=== PATIENT | female | born 1995 | race Caucasian/White ===

== ENCOUNTER 2016-10-17 14:53 | Emergency (ER) | payer BC ==
[~2016-10-17] VITALS: Ht 172.7 cm; Wt 66.0 kg
[2016-10-17 14:58] VITALS: TEMP 36.8; Ht 172.7 cm; Wt 66.0 kg
--- NOTE | 2016-10-17 15:41 | EMERGENCY ROOM VISIT NOTE ---
ED Visit Note First contact with patient: 15:20 CHIEF COMPLAINT: Right eyelid laceration HISTORY OF PRESENT ILLNESS: This 21-year-old female patient presents to the emergency department ambulatory after cutting the right eyelid rate last night. The patient states that she was dancing at a bar and accidentally ran into a glass with her head. She states that she noticed a laceration above her right eye and they immediately went home and cleaned the cut with an alcohol wipe and applied Neosporin. There has been no active bleeding, but the patient states that when she lifts off the cut it seems to gape apart. Her tetanus shot is up- to-date. She denies headache, nausea, loss of consciousness or dizziness. REVIEW OF SYSTEMS: A 6 system review of systems was completed with positives and pertinent negatives listed in the HPI. ALLERGIES: No known drug allergies MEDICATIONS: ParaGard IUD PMH: No significant past medical history. SOCIAL HISTORY: The patient lives locally with roommates. Nonsmoker, admits to occasional alcohol use. PHYSICAL EXAM: Vital Signs: Reviewed Nurse's notes, vital signs stable. GENERAL : This is a 21-year-old female, in no acute distress, well-developed, well- nourished. SKIN: There is a 1 cm long laceration just superior to the lateral aspect of the right eye. It is superficial and the edges only mildly gape apart with traction, but lay well without traction. There is no foreign material in the wound and it looks clean. There is no active bleeding. HEENT: PERRLA, EOMs intact. Tympanic membranes pearly shannon bilaterally without hemotympanum. Mucous membranes moist. No facial bone tenderness. EMERGENCY DEPARTMENT COURSE: I examined the patient. Verbal consent was obtained to perform the procedure. The laceration was cleaned with betadine and sterile saline and there was no bleeding. The edges of the laceration were approximated and secured with 3 layers of Dermabond glue with good wound approximation. The patient tolerated the procedure well. Scar reduction measures were discussed with the patient. She verbalized understanding of my assessment and treatment plan. The patient was discharged home in stable condition. DIAGNOSIS: Right eyelid laceration Current/Historical Medications Scheduled Iud's (Paragard Intrauterine Inspector Conveyor Line), 1 EA INT UTER UD Allergies Coded Allergies: No Known Allergies (Unverified , 10/17/16) Vital Signs Date Time Temp Pulse Resp B/P (MAP) Pulse Ox O2 Delivery O2 Flow Rate FiO2 10/17/16 15:52 59 18 130/74 97 10/17/16 14:58 36.8 60 16 126/79 98 Room Air Departure Information Impression Primary Impression: Facial laceration Dispostion Home / Self-Care Condition GOOD Referrals No Doctor, Assigned (PCP) Patient Instructions ED Laceration Facial Skin Glue, My [facility] Additional Instructions Leave the skin glue in place. This will follow off on its own in 4-5 days. For pain control, you can use the following [id number] medicines (if >12 yo): - Regular strength (325mg/tab) Tylenol (acetaminophen) 2 tabs every 4-6 hours as needed. Do not exceed 12 tablets in a 24 hour period. Avoid taking more than 4 grams (4000 mg) of Tylenol per day. This includes any other sources of acetaminophen you may take on a regular basis. - Regular strength (200 mg/tab) Advil (ibuprofen) 1-2 tabs every 4-6 hours as needed. Do not exceed a dose of 3200 mg per day. Apply either Eucerin or Cerave cream to the dry areas on your face. After the glue has fallen off, you can apply vitamin E oil, cocoa butter or over -the-counter scar formulations to the scar. Keep SPF on to prevent burning. Problem Qualifiers Primary Impression: Facial laceration Encounter type: initial encounter Qualified Codes: S01.81XA - Laceration without foreign body of other part of head, initial encounter
[2016-10-17] MEDS ORDERED: IUD'IUD INT UTER (15:50)
[2016-10-17 15:52] VITALS: BP 130/74; PULSE 59; O2SAT 97
== END 2016-10-17 15:49 | disposition home or self-care (01) ==
LOC: C.EDB 14:57 → C.EDD 15:49
DX: S01.81XA Laceration without foreign body of other part of head, initial encounter (principal); W25.XXXA Contact with sharp glass, initial encounter

== ENCOUNTER 2016-12-04 12:30 | Emergency (ER) | payer BC ==
[~2016-12-04] VITALS: Ht 170.2 cm; Wt 64.9 kg
[~2016-12-04 12:30] MED LIST: IUD'IUD INT UTER
[2016-12-04 12:31] VITALS: TEMP 37.1; Ht 170.2 cm; Wt 64.9 kg
[2016-12-04] MEDS ORDERED: SODIUM CHLORIDE 0.9% 1000ML 1,000 ML IV STA (12:44)
[2016-12-04 13:18] LABS: BASO % 0.3 %; BASO ABS # 0.02 K/uL (0-0.2); COMPLETE YES; EOS % 0.7 %; HEMATOCRIT 39.3 % (37-47); IG% 0.2 %; LYMPH % 19.3 %; LYMPH ABS # 1.13 K/uL (1.2-3.4); MEAN CELL VOLUME 88.1 fL (80-100); MEAN CORPUSCULAR HEMOGLOBIN 28.9 pg (25-34); MEAN CORPUSCULAR HGB CONC 32.8 g/dl (32-36); MEAN PLATELET VOLUME 9.7 fL (7.4-10.4); MONO % 7.3 %; NEUT % 72.2 %; PLATELET COUNT 259 K/uL (130-400); RED BLOOD COUNT 4.46 M/uL (4.2-5.4); WHITE BLOOD COUNT 5.86 K/uL (4.8-10.8)
--- NOTE | 2016-12-04 13:19 | DIAGNOSTIC IMAGING REPORT ---
CHEST ONE VIEW PORTABLE CLINICAL HISTORY: Trauma. COMPARISON STUDY: No previous studies for comparison. FINDINGS: There is no pneumothorax or pleural effusion. Lungs are clear. Cardiac size is at the upper limits of normal. Pulmonary vascularity is normal. No rib fractures are identified on this AP exam. IMPRESSION: No acute cardiopulmonary findings. Electronically signed by: Adelso Martin M.D. 12/04/2016 1:18 PM Dictated Date/Time: 12/04/2016 1:17 PM
--- NOTE | 2016-12-04 13:21 | DIAGNOSTIC IMAGING REPORT ---
RIGHT ANKLE MIN 3 VIEWS ROUTINE CLINICAL HISTORY: Right ankle pain following trauma. COMPARISON: None FINDINGS: Alignment of the right ankle is anatomic. Talar dome is intact. There is no acute fracture. There is a small accessory ossicle projecting inferior to the distal calcaneus. IMPRESSION: No acute fracture or dislocation of the right ankle. Electronically signed by: Adelso Martin M.D. 12/04/2016 1:19 PM Dictated Date/Time: 12/04/2016 1:18 PM
[2016-12-04 13:32] VITALS: O2SAT 98
[2016-12-04 13:37] LABS: BUN/CREATININE RATIO 14.4 (10-20); CALCIUM 9.1 mg/dl (8.5-10.1); CREATININE 0.91 mg/dl (0.60-1.20); POTASSIUM 3.5 mmol/L (3.5-5.1)
--- NOTE | 2016-12-04 13:39 | DIAGNOSTIC IMAGING REPORT ---
CT OF THE HEAD WITHOUT CONTRAST CLINICAL HISTORY: Trauma with loss of consciousness. COMPARISON STUDY: No previous studies for comparison. TECHNIQUE: Helical axial images of the head were obtained without IV contrast. Automated exposure control was utilized for the study. A dose lowering technique was utilized adhering to the principles of ALARA. FINDINGS: No acute intracranial hemorrhage, midline shift or mass effect is present. Ventricular system is normal. Basilar cisterns are patent. There are no extra-axial collections. Carcamo-white differentiation is maintained. No calvarial fractures are identified. Right posterior ethmoid air cell is opacified. Mastoid air cells are clear. IMPRESSION: 1. No acute intracranial findings. 2. No calvarial fracture. Electronically signed by: Adelso Martin M.D. 12/04/2016 1:38 PM Dictated Date/Time: 12/04/2016 1:36 PM
--- NOTE | 2016-12-04 13:44 | DIAGNOSTIC IMAGING REPORT ---
CT OF THE CERVICAL SPINE WITHOUT CONTRAST CLINICAL HISTORY: Trauma. COMPARISON STUDY: No previous studies for comparison. TECHNIQUE: Helical axial images of the cervical spine were obtained without IV contrast. Sagittal and coronal reconstructions were viewed. A dose lowering technique was utilized adhering to the principles of ALARA. FINDINGS: There is straightening of the normal cervical lordosis. Craniocervical junction is intact. There is no acute cervical spine fracture. There is mild endplate osteophytosis. There is no prevertebral edema. IMPRESSION: No acute cervical spine fracture or subluxation. Electronically signed by: Adelso Martin M.D. 12/04/2016 1:43 PM Dictated Date/Time: 12/04/2016 1:40 PM
[2016-12-04 13:45] LABS: PREG INTERNAL NEGATIVE QC NEG CLEAR BACKGROUND; PREG INTERNAL POSITIVE QC POS CONTROL LINE
[2016-12-04 14:07] VITALS: BP 137/72; PULSE 62; O2SAT 98
--- NOTE | 2016-12-04 17:44 | EMERGENCY ROOM VISIT NOTE ---
History Report prepared by Lennox: Luisa Ness Under the Supervision of: Aditi BrunoO. 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 She was riding a horse and states that the horse "spooked" and they both fell to the ground. Her friend that witnessed the fall states that the patient fell straight to the ground in the seated position and kicked her feet out of the stirrups. She thinks that the patient hit her head on the ground and lost consciousness for just a few seconds. The patient is currently complaining of head pain, minimal neck pain, nausea, and right ankle pain. She was wearing a helmet. She has does not remember the episode. She remembers being on the horse and then the next thing she remembers is waking up in the grass. The patient estimates that she fell about 5 feet. She denies any numbness or tingling. Pt denies change in vision, fevers, chest pain, shortness of breath, back pain, and vomiting. 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 A total of 10 systems reviewed and were otherwise negative. Past Medical & Surgical Medical Problems: (1) Facial laceration Family History No pertinent history stated. Social History Smoking Status: Never Smoker Current/Historical Medications Scheduled Iud's (Paragard Intrauterine Cashier Or Checker Stock Clerk), 1 EA INT UTER UD Allergies Coded Allergies: No Known Allergies (Unverified , 12/04/16) Physical Exam Vital Signs Date Time Temp Pulse Resp B/P (MAP) Pulse Ox O2 Delivery O2 Flow Rate FiO2 12/04/16 14:07 62 16 137/72 98 Room Air 12/04/16 13:34 69 12/04/16 13:32 98 Room Air 12/04/16 13:32 98 Room Air 12/04/16 12:31 37.1 88 16 128/69 98 Room Air Physical Exam GENERAL: alert, well appearing, well nourished, no distress, non-toxic HEAD: normal cephalic, atraumatic EYE EXAM: normal conjunctiva, PERRL and EOM's grossly intact OROPHARYNX: no exudate, no erythema, lips, buccal mucosa, and tongue normal and mucous membranes are moist EARS: TMs clear b/l NOSE: No septal hematoma NECK: cervical collar in place, no nuchal rigidity, no adenopathy, non-tender, upon reevaluation no neck pain with ROM CHEST: stable to compression anteriorly and posteriorly LUNGS: clear to auscultation. Normal chest wall mechanics HEART: no murmurs, S1 normal and S2 normal ABDOMEN: abdomen soft, non-tender, normo-active bowel sounds, no masses, no rebound or guarding. PELVIS: stable to compression anteriorly and posteriorly BACK: Back is symmetrical on inspection and there is no deformity, no midline tenderness, no CVA tenderness. UPPER EXTREMITIES: full active and passive range of motion of all joints without tenderness to palpation LOWER EXTREMITIES: full active and passive range of motion of all joints without tenderness to palpation with the exception of the right ankle which has minimal tenderness and swelling on the right lateral malleolus. Old bruise on right hip. NEURO EXAM: Normal sensorium, cranial nerves II-XII grossly intact, normal speech, no gross weakness of arms, no gross weakness of legs. GCS: 15. Medical Decision & Procedures ER Provider Diagnostic Interpretation: Bedside FAST US was negative and included a focus cardiac exam and a focus abdominal exam. Radiology results as stated below per my review and the radiologist's interpretation: CT OF THE HEAD WITHOUT CONTRAST CLINICAL HISTORY: Trauma with loss of consciousness. COMPARISON STUDY: No previous studies for comparison. TECHNIQUE: Helical axial images of the head were obtained without IV contrast. Automated exposure control was utilized for the study. A dose lowering technique was utilized adhering to the principles of ALARA. FINDINGS: No acute intracranial hemorrhage, midline shift or mass effect is present. Ventricular system is normal. Basilar cisterns are patent. There are no extra-axial collections. Carcamo-white differentiation is maintained. No calvarial fractures are identified. Right posterior ethmoid air cell is opacified. Mastoid air cells are clear. IMPRESSION: 1. No acute intracranial findings. 2. No calvarial fracture. Electronically signed by: Adelso Martin M.D. 12/04/2016 1:38 PM Dictated Date/Time: 12/04/2016 1:36 PM CHEST ONE VIEW PORTABLE CLINICAL HISTORY: Trauma. COMPARISON STUDY: No previous studies for comparison. FINDINGS: There is no pneumothorax or pleural effusion. Lungs are clear. Cardiac size is at the upper limits of normal. Pulmonary vascularity is normal. No rib fractures are identified on this AP exam. IMPRESSION: No acute cardiopulmonary findings. Electronically signed by: Adelso Martin M.D. 12/04/2016 1:18 PM Dictated Date/Time: 12/04/2016 1:[address] OF THE CERVICAL SPINE WITHOUT CONTRAST CLINICAL HISTORY: Trauma. COMPARISON STUDY: No previous studies for comparison. TECHNIQUE: Helical axial images of the cervical spine were obtained without IV contrast. Sagittal and coronal reconstructions were viewed. A dose lowering technique was utilized adhering to the principles of ALARA. FINDINGS: There is straightening of the normal cervical lordosis. Craniocervical junction is intact. There is no acute cervical spine fracture. There is mild endplate osteophytosis. There is no prevertebral edema. IMPRESSION: No acute cervical spine fracture or subluxation. Electronically signed by: Adelso Martin M.D. 12/04/2016 1:43 PM Dictated Date/Time: 12/04/2016 1:40 PM RIGHT ANKLE MIN 3 VIEWS ROUTINE CLINICAL HISTORY: Right ankle pain following trauma. COMPARISON: None FINDINGS: Alignment of the right ankle is anatomic. Talar dome is intact. There is no acute fracture. There is a small accessory ossicle projecting inferior to the distal calcaneus. IMPRESSION: No acute fracture or dislocation of the right ankle. Electronically signed by: Adelso Martin M.D. 12/04/2016 1:19 PM Dictated Date/Time: 12/04/2016 1:18 PM Laboratory Results 12/04/16 13:05 Red Blood Count 4.46, Mean Corpuscular Volume 88.1, Mean Corpuscular Hemoglobin 28.9, Mean Corpuscular Hemoglobin Concent 32.8, Mean Platelet Volume 9.7, Neutrophils (%) (Auto) 72.2, Lymphocytes (%) (Auto) 19.3, Monocytes (%) (Auto) 7.3, Eosinophils (%) (Auto) 0.7, Basophils (%) (Auto) 0.3, Neutrophils # (Auto) 4.23, Lymphocytes # (Auto) 1.13, Monocytes # (Auto) 0.43, Eosinophils # (Auto) 0.04, Basophils # (Auto) 0.02 12/04/16 13:05 Test 12/04/16 13:05 White Blood Count 5.86 K/uL (4.8-10.8) Red Blood Count 4.46 M/uL (4.2-5.4) Hemoglobin 12.9 g/dL (12.0-16.0) Hematocrit 39.3 % (37-47) Mean Corpuscular Volume 88.1 fL (80-100) Mean Corpuscular Hemoglobin 28.9 pg (25-34) Mean Corpuscular Hemoglobin Concent 32.8 g/dl (32-36) Platelet Count 259 K/uL (130-400) Mean Platelet Volume 9.7 fL (7.4-10.4) Neutrophils (%) (Auto) 72.2 % Lymphocytes (%) (Auto) 19.3 % Monocytes (%) (Auto) 7.3 % Eosinophils (%) (Auto) 0.7 % Basophils (%) (Auto) 0.3 % Neutrophils # (Auto) 4.23 K/uL (1.4-6.5) Lymphocytes # (Auto) 1.13 K/uL (1.2-3.4) Monocytes # (Auto) 0.43 K/uL (0.11-0.59) Eosinophils # (Auto) 0.04 K/uL (0-0.5) Basophils # (Auto) 0.02 K/uL (0-0.2) RDW Standard Deviation 44.4 fL (36.4-46.3) RDW Coefficient of Variation 13.7 % (11.5-14.5) Immature Granulocyte % (Auto) 0.2 % Immature Granulocyte # (Auto) 0.01 K/uL (0.00-0.02) Anion Gap 7.0 mmol/L (3-11) Est Creatinine Clear Calc Drug Dose 95.1 ml/min Estimated GFR () 104.5 Estimated GFR (Non- 90.2 BUN/Creatinine Ratio 14.4 (10-20) Calcium Level 9.1 mg/dl (8.5-10.1) Total Bilirubin 0.6 mg/dl (0.2-1) Direct Bilirubin 0.2 mg/dl (0-0.2) Aspartate Amino Transf (AST/SGOT) 20 U/L (15-37) Alanine Aminotransferase (ALT/SGPT) 27 U/L (12-78) Alkaline Phosphatase 38 U/L (45-117) Total Protein 7.4 gm/dl (6.4-8.2) Albumin 3.9 gm/dl (3.4-5.0) Human Chorionic Gonadotropin, Qual NEG (NEG) Laboratory results per my review. Medications Administered Medications (Trade) Dose Ordered Sig/Gita Route Start Time Stop Time Status Last Admin Dose Admin Sodium Chloride 1,000 ml @ 999 mls/hr Q1H1M STAT IV 12/04/16 12:44 12/04/16 13:44 DC 12/04/16 12:44 999 MLS/HR ED Course ED COURSE: Vital signs were reviewed and showed normal vitals. The patients medical record was reviewed The above diagnostic studies were performed and reviewed. ED treatments and interventions as stated above. 1231: The patient was evaluated in room B7. A complete history and physical examination was performed. Bedside FAST US was negative and included a focus cardiac exam and a focus abdominal exam. 1244: NSS 1000 ml @ 999 mls/hr IV 1346: I reassessed the patient at this time. She is feeling better. She was able to get up and walk to the bathroom. She has no neck pain with ROM. 1423: Upon reevaluation, the patient is resting comfortably. I discussed my findings with the patient and she understands and agrees with the treatment plan. Based on the patients age, coexisting illnesses, exam and lab findings the decision to treat as an outpatient was made. The patient remained stable while under my care. The patient appeared well at the time of discharge. Medical Decision Differential diagnoses include major intracranial, cervical, spinal, thoracic, abdominal, pelvic and neurologic injury. Fracture, contusion, sprain, strain, laceration, abrasions included as well. Patient is a 21-year-old female who presents the ER following being thrown off her horse. Reported loss consciousness was less than several seconds. Patient is complaining of a headache and right ankle pain. Focused ultrasound performed by myself at bedside of heart and abdomen was negative ie FAST exam. Labs were unremarkable including a negative urine dip. X-rays of the ankle and chest were negative. CT of the cervical spine and head unremarkable. Cervical collar was removed and she had no midline tenderness with range of motion. She was updated regards to findings. She was discharged to follow-up with her PCP and instructed not to return to any physical activity until cleared from a concussion standpoint. Discussed with Pt concerning signs and symptoms to watch out for. Pt was instructed to follow up with their PCP and discussed with the patient their option to return to the ED at anytime for persistent or worsening symptoms. The appropriate anticipatory guidance and out-patient management, including indications for return to the emergency department, were explained at length to the patient and understood. Medication Reconcilliation Current Medication List: was personally reviewed by me Blood Pressure Screening Patient's blood pressure: Normal blood pressure Impression Primary Impression: Concussion Additional Impression: Ankle sprain Scribe Attestation The scribe's documentation has been prepared under my direction and personally reviewed by me in its entirety. I confirm that the note above accurately reflects all work, treatment, procedures, and medical decision making performed by me. Departure Information Dispostion Home / Self-Care Referrals No Doctor, Assigned (PCP) Forms HOME CARE DOCUMENTATION FORM, IMPORTANT VISIT INFORMATION Patient Instructions ED Concussion, My [facility] Additional Instructions Please follow up with your primary care doctor or if you are a student, [facility] with in the next 24 hours. Any worsening of your symptoms, please return to the ED immediately. This includes any fevers greater than 100.4, worsening pain, chest pain, shortness breath, persistent nausea, vomiting, unable to eat or drink, or any other concerning signs or symptoms from your standpoint. Please do not return to any physical activity until you're cleared by your primary care doctor for your concussion. You are allowed to weight-bear as tolerated with your right ankle. If you continue to have pain over the next 5 days she will need repeat x-rays. Problem Qualifiers Primary Impression: Concussion Encounter type: initial encounter Loss of consciousness presence/duration: with LOC of 30 min or less Qualified Codes: S06.0X1A - Concussion with loss of consciousness of 30 minutes or less, initial encounter Additional Impression: Ankle sprain Encounter type: initial encounter Involved ligament of ankle: unspecified ligament Laterality: right Qualified Codes: S93.401A - Sprain of unspecified ligament of right ankle, initial encounter
== END 2016-12-04 14:10 | disposition home or self-care (01) ==
LOC: C.EDB 12:30 → EDBD 12:30 → C.EDB 14:10
DX: S06.0X1A Concussion with loss of consciousness of 30 minutes or less, initial encounter (principal); S93.401A Sprain of unspecified ligament of right ankle, initial encounter; W17.89XA Other fall from one level to another, initial encounter